=== PATIENT | male | born 1990 | race Caucasian/White ===

== ENCOUNTER 2016-12-14 10:03 | Day surgery (SDC) | payer OTHER ==
[~2016-12-14] VITALS: Ht 175.3 cm; Wt 96.7 kg
[2016-12-14] VITALS (13 sets, daily range): BP systolic 139–166; BP diastolic 80–103; PULSE 68–77; RESP 9–21; Ht 175.3 cm; Wt 96.7 kg
[~2016-12-14 10:03] MED LIST: CEFAZOLIN 1 GM/50 ML (PMX) 50 ML IVPB SCH
[2016-12-14 11:20] LABS: ADD SCAN DIFF NO
[2016-12-14 11:24] LABS: BASOPHIL # 0.1 10^3/ul (0.0-0.1); BASOPHILS % 0.5 % (0.0-2.0); EOSINOPHILS # 0.1 10^3/ul (0.0-0.5); EOSINOPHILS % 1.2 % (0.0-7.0); HEMATOCRIT 49.8 % (42.0-52.0); HEMOGLOBIN 17.1 g/dl (14.0-18.0); LYMPHOCYTES % 20.7 % (15.0-51.0); MEAN CORPUSCULAR HEMOGLOBIN 29.9 pg (29.0-33.0); MEAN CORPUSCULAR HGB CONC 34.3 g/dl (32.0-37.0); MEAN CORPUSCULAR VOLUME 87.2 fl (82.0-101.0); MEAN PLATELET VOLUME 10.8 fl (7.4-10.4); MONOCYTE # 0.7 10^3/ul (0.3-0.9); MONOCYTES % 7.3 % (0.0-11.0); NEUTROPHIL # 6.6 10^3/ul (1.6-7.5); NEUTROPHILS % 69.6 % (39.0-77.0); PLATELET COUNT 183 10^3/UL (140-415); RED BLOOD COUNT 5.71 10^6/ul (4.70-6.10); RED CELL DISTRIBUTION WIDTH 12.2 % (11.5-14.5); WHITE BLOOD COUNT 9.4 10^3/ul (4.8-10.8)
[2016-12-14] MEDS ORDERED: HYDR-2086 PO (11:38)
[2016-12-14 11:41] LABS: ALBUMIN 4.6 g/dl (3.3-4.9); ALBUMIN/GLOBULIN RATIO 1.12; BILIRUBIN,INDIRECT 0.4 mg/dl (0-1.1); BILIRUBIN,TOTAL 0.4 mg/dl (0.2-1.3); TOTAL PROTEIN 8.7 g/dl (6.1-8.1)
[2016-12-14 11:44] LABS: INR 0.99; PROTIME 13.1 Sec (12.2-14.2)
[2016-12-14 11:45] LABS: CALCIUM 9.7 mg/dl (8.4-10.2); CREATININE 0.87 mg/dl (0.61-1.24); POTASSIUM 4.9 mmol/L (3.5-5.1)
[2016-12-14 12:34] LABS: PARTIAL THROMBOPLASTIN TIME 33.8 Sec (25.0-35.0)
[2016-12-14] MEDS ORDERED: MIDAZOLAM 1 MG/ML 2 ML INJ ONE (13:08)
[2016-12-14] MEDS ORDERED: METOCLOPRAMIDE 10 MG INJ ONE (13:09)
--- NOTE | 2016-12-14 13:12 | HPN ---
Date/Time of Note Date/Time of Note DATE: 12/14/16 TIME: 13:12 Interval H&P Admission Note Pt. seen H&P reviewed: No system changes MOUNA WESTFALL Dec 14, 2016 13:12
[2016-12-14] MEDS ORDERED: PROPOFOL 20 ML ONE ×2 (13:18→13:44)
[2016-12-14] MEDS ORDERED: HYDROmorphONE 2 MG/ML SYG ONE (13:19)
[2016-12-14] MEDS ORDERED: ROCURONIUM 50 MG INJ ONE (13:22)
[2016-12-14] MEDS ORDERED: CEFAZOLIN 1 GM INJ ONE (13:23)
[2016-12-14] MEDS ORDERED: ONDANSETRON 4 MG INJ ONE (13:23)
[2016-12-14] MEDS ORDERED: BUPIVACAINE 0.25% (MPF) 30 ML INJ ONE (13:48)
[2016-12-14] MEDS ORDERED: BUPIVACAINE 0.25% (MPF) 30 ML INJ INJ ONE (13:54)
[2016-12-14] MEDS ORDERED: ROPIVACAINE 0.2% 20 ML VIAL ONE (13:58)
[2016-12-14] MEDS ORDERED: ONDANSETRON 4 MG INJ IV PRN (14:00)
[2016-12-14] MEDS ORDERED: MEPERIDINE 25 MG INJ IV PRN (14:00)
[2016-12-14] MEDS ORDERED: HYDROmorphONE (0.2 MG/ML) 10ML SYG IV PRN ×2 (14:00)
[2016-12-14] MEDS ORDERED: LABETALOL HCL 20MG INJ IV PRN (14:00)
[2016-12-14] MEDS ORDERED: hydrALAzine 20 MG INJ IV PRN (14:00)
[2016-12-14] MEDS ORDERED: DIPHENHYDRAMINE 50 MG INJ IV PRN (14:00)
[2016-12-14] MEDS ORDERED: OXYCODONE/ACETAMINOPHEN (5/325) TAB PO PRN ×2 (14:00)
[2016-12-14] MEDS ORDERED: METOCLOPRAMIDE 10 MG INJ IV PRN (14:00)
[2016-12-14] MEDS ORDERED: NEOSTIGMINE 3 MG/3 ML SYRINGE ONE (14:08)
[2016-12-14] MEDS ORDERED: GLYCOPYRROLATE 0.4 MG INJ ONE (14:08)
[2016-12-14] MEDS: HYDROmorphONE (0.2 MG/ML) 10ML SYG IV PRN ×2 (14:36→14:50)
--- NOTE | 2016-12-14 17:37 | RADRPT ---
Vent Rate: 71 bpm RR Interval: 0 msec MD Interval: 156 msec QRS Duration: 88 msec QT Interval: 366 msec QTC Interval: 397 msec P-R-T [place]: 27 - 50 - 47 degrees Normal sinus rhythm Normal ECG Electronically Signed By: Eren Husain [id number]
--- NOTE | 2016-12-18 18:21 | OPR ---
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 PREOPERATIVE DIAGNOSIS: Solid left testicular mass. POSTOPERATIVE DIAGNOSIS: Solid left testicular mass. OPERATION PERFORMED: Left radical orchiectomy. SURGEON: Jeison Napier MD FINDINGS: Solid left testicular mass. BLOOD ADMINISTRATION: None. IMPLANTS: None. ESTIMATED BLOOD LOSS: Less than 5 cc. DRAINS: None. SPECIMEN: Left testicle and cord. COMPLICATIONS: None. ANESTHESIA: General with local. OPERATIVE PROCEDURE: The patient was brought into the operating room and placed on the operating room table in the supine position. He was prepped and draped in the usual fashion after anesthesia was induced. A timeout was undertaken and pressure points were padded and he received preoperative antibiotic therapy. Sequential compression devices were applied. Physical examination demonstrated a decrease in size of the right testicle and a large firm hard irregular left testicle. In the left lower quadrant the incision was created overlying the borders of the internal and external canal, which was taken through the skin and through the fat layer thus exposing Judy's fascia, which was opened parallel to the incision, thus exposing the aponeurosis of the external oblique, which was opened and thus identifying the ilioinguinal nerve, which was well preserved throughout the entire case. This allowed for dissection of the cord structures to the level of the internal ring. The left testicle and cord were brought up to the level of the internal ring, at which point the cord was doubly ligated with a 0 silk suture, and subsequently with the Metzenbaum scissors and sent to pathology for further evaluation. Pinpoint hemostasis was obtained, and once again, the ilioinguinal nerve was identified and preserved. The fascial layer was closed with a running stitch of 3-0 Vicryl sutures, Judy's fascia was reapproximated with interrupted 3-0 Vicryl sutures, and the skin was closed with surgical clips. A sterile dressing was applied with Tegaderm being applied after a 4 by 4 was placed. The sponge and needle count were correct. There were no complications. He was transferred to the recovery room in stable condition and will be discharged to home on [place] 5/325, 1 to 2 tabs q.4 hours, dispense number 30, no refill. He will follow up in the office in 2 weeks time for removal of clips and discussion of pathology. He tolerated this well. Dictated By: Jeison Napier MD /ifeoma/chago /Document#: [id number]
== END 2016-12-14 15:55 | disposition home or self-care (01) ==
LOC: SDS 10:03
PROVIDERS: ATTEND Urology
DX: D49.59 Neoplasm of unspecified behavior of other genitourinary organ (principal); N45.1 Epididymitis
CPT/HCPCS: 54530; 80053; 85025; 85610; 85730; 88307; 93005; J0360; J0690; J1170; J2250; J2405; J2710; J2765; J2795; Z7512; Z7610